=== PATIENT | female | born 1965 | race African-American/Black ===

== ENCOUNTER 2017-11-09 16:36 | Emergency (ER) | payer MEDICAID ==
[~2017-11-09] VITALS: Ht 162.6 cm; Wt 59.0 kg
[2017-11-09 16:39] VITALS: BP 123/71
== END 2017-11-10 03:00 | disposition left against medical advice (07) ==
LOC: ER 16:47
DX: F10.229 Alcohol dependence with intoxication, unspecified (principal); R26.9 Unspecified abnormalities of gait and mobility; E86.0 Dehydration; K21.9 Gastro-esophageal reflux disease without esophagitis; Y90.9 Presence of alcohol in blood, level not specified
CPT/HCPCS: 99283